=== PATIENT | male | born 1930 | race Caucasian/White ===

== ENCOUNTER 2019-02-22 13:28 | Emergency (ER) | payer BC ==
[~2019-02-22] VITALS: Ht 160 cm; Wt 54.4 kg
[2019-02-22 13:43] VITALS: Ht 160 cm; Wt 54.4 kg
[2019-02-22 14:39] LABS: PLATELET COUNT 229 x10^3mcL (130-400); RED CELL DISTRIBUTION WIDTH 14.3 % (11.5-14.5)
[2019-02-22 14:40] LABS: BASOPHIL % 0 % (0-2)
[2019-02-22 14:56] LABS: CALCIUM 9.2 mg/dL (8.5-10.1); CARBON DIOXIDE 22.4 mmol/L (21-32); CHLORIDE SERUM 104 mmol/L (98-107); CREATININE SERUM 1.4 mg/dL (0.7-1.3); GLUCOSE SERUM 182 mg/dL (74-106); POTASSIUM SERUM 4.1 mmol/L (3.5-5.1); SODIUM SERUM 138 mmol/L (136-145)
[2019-02-22 15:05] LABS: ALBUMIN 3.4 g/dL (3.4-5.0); ALKALINE PHOSPHATASE 68 U/L (46-116); ALT/SGPT 18 U/L (16-63); AST/SGOT 16 U/L (15-37); BILIRUBIN TOTAL 0.4 mg/dL (0.20-1.00); TOTAL PROTEIN, SERUM 7.2 g/dL (6.4-8.2)
[2019-02-22 15:34] LABS: microscopic required? YES; urine erythrocyte TRACE (NEGATIVE)
[2019-02-22 17:10] VITALS: BP 110/68
== END 2019-02-22 17:10 | disposition home or self-care (01) ==
LOC: ED 13:28
PROVIDERS: Emergency Medicine
DX: S01.81XA Laceration without foreign body of other part of head, initial encounter (principal); B34.9 Viral infection, unspecified; R55 Syncope and collapse; W22.8XXA Striking against or struck by other objects, initial encounter; Y93.89 Activity, other specified; Y92.89 Other specified places as the place of occurrence of the external cause; Y99.8 Other external cause status
CPT/HCPCS: J2001; J7030; Q0092